=== PATIENT | male | born 1965 | race Hispanic/Latino ===

== ENCOUNTER 2018-11-02 19:02 | Inpatient (IN) | payer OTHER ==
[~2018-11-02] VITALS: Ht 160 cm; Wt 69.4 kg
[2018-11-02 19:28] LABS: EOSINOPHILS % (AUTO) 2.3 % (0.0-8.0); HEMATOCRIT 49.3 % (42-54); LYMPHOCYTES % (AUTO) 30.2 % (21.0-51.0); MEAN CORPUSCULAR HEMOGLOBIN 30.7 pg (27.0-33.0); MEAN CORPUSCULAR HGB CONC 34.7 g/dL (32.0-36.0); MEAN CORPUSCULAR VOLUME 88.3 fL (79-99); MONOCYTES % (AUTO) 5.5 % (3.0-13.0); PLATELET COUNT (AUTO) 220 K/uL (130-400); RED BLOOD CELL COUNT(AUTO) 5.58 MIL/uL (4.50-6.20); RED CELL DISTRIBUTION WIDTH 12.9 % (11.0-15.5)
[2018-11-02 19:42] LABS: CREATININE 0.8 mg/dL (0.5-1.5)
[2018-11-02 19:50] LABS: INR 0.96 (0.85-1.15); PARTIAL THROMBOPLASTIN TIME 29.2 SEC (26.3-35.5); PROTHROMBIN TIME 10.1 SEC (9.6-11.6)
[2018-11-02 19:54] LABS: ALBUMIN 3.9 g/dL (3.5-5.0); BILIRUBIN,TOTAL 0.6 mg/dL (0.2-1.0); POTASSIUM 4.5 mmol/L (3.5-5.1)
[2018-11-02 20:27] LABS: APPEARANCE,URINE Clear (CLEAR); BILIRUBIN,URINE Negative (NEGATIVE); COLOR,URINE Yellow (YELLOW); GLUCOSE, URINE (UA) 250 mg/dL (NEGATIVE); KETONES,URINE Negative (NEGATIVE); LEUKOCYTE ESTERASE ,URINE Negative (NEGATIVE); NITRATE,URINE Negative (NEGATIVE); OCCULT BLOOD,URINE Negative (NEGATIVE); PH,URINE 6.5 (5.0-8.0); PROTEIN,URINE Negative (NEGATIVE)
[2018-11-02 20:34] LABS: AMPHET/METH SCREEN,URINE NEGATIVE (NEGATIVE); BARBITURATE SCREEN, URINE NEGATIVE (NEGATIVE); BENZODIAZEPINES SCREEN,URINE NEGATIVE (NEGATIVE); CANNABINOID SCREEN,URINE NEGATIVE (NEGATIVE); COCAINE SCREEN,URINE NEGATIVE (NEGATIVE); OPIATE SCREEN,URINE NEGATIVE (NEGATIVE); PHENCYCLIDINE SCREEN,URINE NEGATIVE (NEGATIVE)
[2018-11-02] MEDS ORDERED: ASPIRIN 325 MG TABLET ONE (23:29)
[2018-11-02] MEDS ORDERED: ACETAMINOPHEN 325 MG TAB PO PRN (23:45)
[2018-11-02] MEDS ORDERED: ONDANSETRON HCL 4 MG/2 ML VIAL IV PRN (23:45)
[2018-11-03] VITALS (7 sets, daily range): BP systolic 116–133; BP diastolic 57–71
[2018-11-03 00:01] LABS: HEMOGLOBIN A1C 7.7 % (4.0-6.0)
[2018-11-03] MEDS ORDERED: PANTOPRAZOLE SODIUM 40 MG TABLET.DR PO ONE (00:33)
[2018-11-03] MEDS ORDERED: SODIUM CHLORIDE 0.9% 1000ML 1,000 ML IV ONE (00:33)
[2018-11-03] MEDS ORDERED: ENOXAPARIN SODIUM 30 MG/0.3 ML SQ ONE (00:33)
[2018-11-03 06:57] LABS: BASOPHILS % (AUTO) 0.9 % (0.0-5.0); EOSINOPHILS % (AUTO) 3.6 % (0.0-8.0); HEMATOCRIT 44.2 % (42-54); LYMPHOCYTES % (AUTO) 40.4 % (21.0-51.0); MEAN CORPUSCULAR HEMOGLOBIN 30.3 pg (27.0-33.0); MEAN CORPUSCULAR HGB CONC 34.7 g/dL (32.0-36.0); MEAN CORPUSCULAR VOLUME 87.3 fL (79-99); MONOCYTES % (AUTO) 6.1 % (3.0-13.0); NUCLEATED RED BLOOD CELLS 0.1 % (0.0-0.19); PLATELET COUNT (AUTO) 193 K/uL (130-400); RED BLOOD CELL COUNT(AUTO) 5.06 MIL/uL (4.50-6.20); RED CELL DISTRIBUTION WIDTH 13.1 % (11.0-15.5)
[2018-11-03 07:17] LABS: ALBUMIN 3.3 g/dL (3.5-5.0); BILIRUBIN,TOTAL 0.5 mg/dL (0.2-1.0); CREATININE 0.8 mg/dL (0.5-1.5); POTASSIUM 4.1 mmol/L (3.5-5.1); THYROID STIMULATING HORMONE 2.13 uIU/mL (0.36-3.74); TOTAL PROTEIN, SERUM 6.7 g/dL (6.0-8.3)
--- NOTE | 2018-11-03 07:45 | NUR ---
ASSESSMENT ENCOUNTERED PT SITTING ON SIDE OF BED, A&OX3, CALM COOPERATIVE AND DOES NOT APPEAR TO BE IN ANY DISTRESS NOR ANY NEURO DEFICITS PRESENT, PT DENIES PAIN, SOB, NAUSEA. PT DOES HAVE RT SIDED WEAKNESS TO EXTREMITIES, PT IS AMBULATORY, GAIT SLOW BUT STEADY WITH A WEAK GAIT TO THE RIGHT SIDE. PT IS ABLE TO TOLERATE FOODS FLUIDS AND MEDICATIONS WITH NO THROAT CLEARING OR COUGH. CALL LIGHT WITHIN REACH, FAMILY AT BEDSIDE.
[2018-11-03] MEDS ORDERED: IOHEXOL-350 75 ML VIAL IV ONE (08:06)
[2018-11-03] MEDS ORDERED: GADODIAMIDE 5 MMOL/10 ML VIAL 5 MMOL/10 ML ML IV ONE (08:07)
[2018-11-03] MEDS ORDERED: ASPIRIN 325MG EC TAB 325 MG TABLET.DR PO SCH (09:00)
--- NOTE | 2018-11-03 10:14 | NUR ---
BEDSIDE SWALLOW EVALUATION COMPLETE. -S/S OF ASPIRATION OBSERVED. RECOMMEND REGULAR DIET WITH THIN LIQUIDS. PATIENT INFORMATION: PATIENT IS A 52 YEAR OLD MALE REFERRED FOR A BEDSIDE SWALLOW EVALUATION SECONDARY TO POSSIBLE CVA. PATIENT ADMITTED TO HOSPITAL WITH THE FOLLOWING DIAGNOSIS: RULE OUT CVA, HYPERTENSION, AND ONSET OF TYPE 2 DIABETES. PATIENT REPORTS AN UNREMARKABLE MEDICAL HISTORY. PATIENT ALERT AND COOPERATIVE DURING EVALUATION. EVALUATION: PATIENT'S SWALLOW FUNCTION AND EFFICIENCY ARE WITHIN FUNCTIONAL LIMITS. NO SIGNS/SYMPTOMS OF ASPIRATION WERE OBSERVED DURING EVALUATION. PATIENT PRESENTS WITH POOR DENTITION WITH AND WITHOUT DENTURES. THIS AFFECTS MASTICATION PATTERNS. PATIENT PRESENTS WITH ADEQUATE ORAL STRENGTH AND CONTROL, TIMELY PHARYNGEAL RESPONSE TIME, GOOD LARYNGEAL ELEVATION AND EXCURSION, AND APPROPRIATE AIRWAY PROTECTION. PATIENT'S SPEECH AND LANGUAGE ARE COMMENSURATE WITH PRE-ADMISSION STATUS. RECOMMENDATIONS: 1. REGULAR TEXTURE DIET 2. THIN LIQUIDS G-CODES: [id number] Addendum: 11/03/[address] ABERNATHY Amended: Links added.
[2018-11-03] MEDS: SODIUM CHLORIDE 0.9% 1000ML 1,000 ML IV SCH (14:00)
[2018-11-03] MEDS: ASPIRIN 325MG EC TAB 325 MG TABLET.DR PO SCH (15:43)
[2018-11-03] MEDS: ENOXAPARIN SODIUM 30 MG/0.3 ML SQ SCH (15:43)
[2018-11-03] MEDS: INSULIN HUMULIN R 100 UNIT/ML 3ML SQ SCH (21:00)
[2018-11-03] MEDS: FAMOTIDINE/PF 20 MG/2 ML VIAL IV SCH (23:13)
[2018-11-04 03:00] VITALS: BP 127/65
[2018-11-04] MEDS: INSULIN HUMULIN R 100 UNIT/ML 3ML SQ SCH ×4 (06:47→21:59)
[2018-11-04 07:57] VITALS: BP 117/64
--- NOTE | 2018-11-04 08:00 | NUR ---
ASSESSMENT ENCOUNTERED PT A&OX3, CALM COOPERATIVE AND DOES NOT APPEAR TO BE IN ANY DISTRESS. PT DENIES PAIN, SOB, NAUSEA. PT IS AMBULATORY, GAIT SLOW BUT STEADY WITH STAND BY ASSIST. PT DOES HAVE WEAKNESS TO RT UPPER AND LOWER EXTREMITIES WITH NO FACIAL DROOP. PT IS ABLE TO TOLERATE FOODS, FLUIDS AND MEDICATION WITH NO THROAT CLEARING OR COUGH. CALL LIGHT WITHIN REACH, FAMILY AT BEDSIDE.
[2018-11-04] MEDS: FAMOTIDINE/PF 20 MG/2 ML VIAL IV SCH ×2 (08:19→21:43)
[2018-11-04] MEDS: ASPIRIN 325MG EC TAB 325 MG TABLET.DR PO SCH (08:20)
[2018-11-04] MEDS: ENOXAPARIN SODIUM 30 MG/0.3 ML SQ SCH (08:20)
[2018-11-04] MEDS: SODIUM CHLORIDE 0.9% 1000ML 1,000 ML IV SCH ×2 (10:00)
[2018-11-04 11:56] VITALS: BP 130/57
--- NOTE | 2018-11-04 13:35 | NUR ---
RD Notification for New Diabetes Mellitus Onset RD offered and provided nutrition education to patient. Patient was agreeable and accepting of information. Patient asked appropriate questions concerning dietary recommendations. Patient provided with reference materials and handout for additional revision. Patient verbalized understanding. Screen Patient with no GI distress on current Heart Healthy diet and PO intake at 100%. Patient LBM 11/04/17. Patient monitored labs: Glu 137, Alb 3.3, Triglycerides 319. RD to continue to monitor nutritional labs and PO intake. Please notify RD as nutritional concerns arise. Thank you. Addendum: 11/04/18 at [address] RD Amended: Links added.
--- NOTE | 2018-11-04 13:45 | NUR ---
CARDIOLOGY CONSULT SPOKE TO CABRERA GOFF PA-C.
[2018-11-04 16:17] VITALS: BP 138/65
[2018-11-04 17:17] LABS: INR 0.95 (0.85-1.15); PARTIAL THROMBOPLASTIN TIME 29.5 SEC (26.3-35.5)
[2018-11-04] MEDS ORDERED: HEPARIN SODIUM 5000UNIT/ML 1ML VIAL SQ PRN (18:15)
[2018-11-04 19:00] VITALS: BP 134/59
[2018-11-04] MEDS: HEPARIN 25000 UNITS/250 ML D5W 250 ML IV SCH (19:03)
[2018-11-04] MEDS: ATORVASTATIN CALCIUM 10 MG TABLET PO SCH (21:43)
--- NOTE | 2018-11-04 22:36 | NUR ---
Dr Massey Spoke to Dr Massey. Informed him of MRI findings Addendum: 11/04/18 at 2315 by CHARMAINE BAUER RN RN Informed Dr Massey of Heparin drip started on patient per Cardiology
[2018-11-04 23:00] VITALS: BP 108/57
--- NOTE | 2018-11-05 01:00 | NUR ---
PTT Patient on heparin drip. PTT 0100: 70.3. Within therapeutic range. Will not change. Next ppt at 0600. No signs of bleeding. Education provided to patient.
[2018-11-05 03:00] VITALS: BP 111/64
--- NOTE | 2018-11-05 06:01 | NUR ---
Patient alert and oriented x4. Denies pain or sob. Resting in bed comfortably. Urinal at reach. Nuero checks q4h. Face symmetrical, Tongue midline. Right all terrain vehicle racer slightly weaker than left. No limb ataxia. No drift to extremities. No gaze. No visual deficits.
[2018-11-05 06:23] LABS: BASOPHILS % (AUTO) 0.9 % (0.0-5.0); EOSINOPHILS % (AUTO) 4.2 % (0.0-8.0); HEMATOCRIT 45.7 % (42-54); LYMPHOCYTES % (AUTO) 34.9 % (21.0-51.0); MEAN CORPUSCULAR HGB CONC 34.1 g/dL (32.0-36.0); MONOCYTES % (AUTO) 6.9 % (3.0-13.0); NEUTROPHILS % (AUTO) 53.1 % (40.0-77.0); NUCLEATED RED BLOOD CELLS 0.1 % (0.0-0.19); PLATELET COUNT (AUTO) 172 K/uL (130-400); WHITE BLOOD COUNT (AUTO) 8.7 K/uL (4.8-10.8)
[2018-11-05] MEDS: INSULIN HUMULIN R 100 UNIT/ML 3ML SQ SCH ×4 (07:30→21:00)
[2018-11-05 07:42] VITALS: BP 126/50
[2018-11-05] MEDS: METFORMIN HCL 500 MG TAB.SR.24H PO SCH (08:18)
[2018-11-05] MEDS: FAMOTIDINE/PF 20 MG/2 ML VIAL IV SCH ×2 (09:09→22:41)
[2018-11-05] MEDS: ASPIRIN 325MG EC TAB 325 MG TABLET.DR PO SCH (09:09)
[2018-11-05 11:49] VITALS: BP 101/52
[2018-11-05] MEDS: SODIUM CHLORIDE 0.9% 1000ML 1,000 ML IV SCH (15:58)
[2018-11-05] MEDS: HEPARIN 25000 UNITS/250 ML D5W 250 ML IV SCH (16:14)
[2018-11-05 16:20] VITALS: BP 133/60
[2018-11-05 19:47] VITALS: BP 115/57
[2018-11-05] MEDS: ATORVASTATIN CALCIUM 10 MG TABLET PO SCH (22:40)
[2018-11-05 23:49] VITALS: BP 126/69
[2018-11-06] MEDS: SODIUM CHLORIDE 0.9% 1000ML 1,000 ML IV SCH ×2 (02:00→22:00)
[2018-11-06 03:56] VITALS: BP 124/66
[2018-11-06 04:16] LABS: HEMATOCRIT 44.9 % (42-54); MEAN CORPUSCULAR HEMOGLOBIN 29.9 pg (27.0-33.0); MEAN CORPUSCULAR HGB CONC 33.9 g/dL (32.0-36.0); MEAN CORPUSCULAR VOLUME 88.3 fL (79-99); NUCLEATED RED BLOOD CELLS 0.2 % (0.0-0.19); PLATELET COUNT (AUTO) 177 K/uL (130-400); RED BLOOD CELL COUNT(AUTO) 5.09 MIL/uL (4.50-6.20); RED CELL DISTRIBUTION WIDTH 12.9 % (11.0-15.5); WHITE BLOOD COUNT (AUTO) 8.9 K/uL (4.8-10.8)
[2018-11-06 04:33] LABS: INR 0.97 (0.85-1.15); PARTIAL THROMBOPLASTIN TIME 63.4 SEC (26.3-35.5); PROTHROMBIN TIME 10.2 SEC (9.6-11.6)
[2018-11-06 04:35] LABS: CREATININE 0.8 mg/dL (0.5-1.5); MAGNESIUM 1.8 mg/dL (1.80-2.40); PHOSPHORUS 4.3 mg/dL (2.5-4.9); POTASSIUM 3.6 mmol/L (3.5-5.1)
[2018-11-06] MEDS: INSULIN HUMULIN R 100 UNIT/ML 3ML SQ SCH ×4 (06:36→20:55)
[2018-11-06 07:00] VITALS: BP 120/69
[2018-11-06] MEDS: METFORMIN HCL 500 MG TAB.SR.24H PO SCH (08:00)
--- NOTE | 2018-11-06 09:35 | NUR ---
TO CT SCAN VIA W/C.
[2018-11-06] MEDS: FAMOTIDINE/PF 20 MG/2 ML VIAL IV SCH ×2 (10:48→20:54)
[2018-11-06] MEDS: ASPIRIN 81 MG EC TAB PO SCH (10:49)
[2018-11-06 11:00] VITALS: BP 137/71
--- NOTE | 2018-11-06 15:30 | NUR ---
DR. RISO CALLED TO CHECK ON THE RESULTS OF CT SCAN ON PT AND ORDERS WERE NOTED.
[2018-11-06 16:00] VITALS: BP 127/67
--- NOTE | 2018-11-06 16:55 | NUR ---
ADVISED DR. PASTOR OF THE ORDERS DR. RIOS HAD GIVEN FOR PRIMARY PHYSICIAN. ORDERS NOTED.
[2018-11-06 19:38] VITALS: BP 118/50
[2018-11-06] MEDS: ATORVASTATIN CALCIUM 10 MG TABLET PO SCH (20:54)
[2018-11-06] MEDS: APIXABAN 2.5 MG TABLET PO SCH (20:54)
[2018-11-06 23:52] VITALS: BP 121/47
[2018-11-07 03:53] VITALS: BP 131/58
[2018-11-07 04:07] LABS: HEMATOCRIT 45.2 % (42-54); MEAN CORPUSCULAR HEMOGLOBIN 29.8 pg (27.0-33.0); MEAN CORPUSCULAR HGB CONC 33.8 g/dL (32.0-36.0); MEAN CORPUSCULAR VOLUME 88.3 fL (79-99); NUCLEATED RED BLOOD CELLS 0.1 % (0.0-0.19); PLATELET COUNT (AUTO) 185 K/uL (130-400); RED BLOOD CELL COUNT(AUTO) 5.12 MIL/uL (4.50-6.20)
[2018-11-07 04:19] LABS: BAND NEUTROPHILS % (MANUAL) 7 % (0-2); EOSINOPHILS % (MANUAL) 1 % (1-6); LYMPHOCYTES % (MANUAL) 21 % (22-44); MAN.DIFF COMMENT-IMPRESSION MANUAL DIFFERENTIAL; MONOCYTES % (MANUAL) 6 % (2-9); PLATELET MORPHOLOGY COMMENT ADEQUATE; SEGMENTED NEUTROPHILS % 65 % (40-70)
[2018-11-07 04:23] LABS: CREATININE 0.9 mg/dL (0.5-1.5); MAGNESIUM 1.8 mg/dL (1.80-2.40); POTASSIUM 3.8 mmol/L (3.5-5.1)
[2018-11-07] MEDS: INSULIN HUMULIN R 100 UNIT/ML 3ML SQ SCH ×4 (06:50→20:38)
[2018-11-07 07:00] VITALS: BP 138/67
[2018-11-07] MEDS: SODIUM CHLORIDE 0.9% 1000ML 1,000 ML IV SCH ×3 (08:00→20:44)
[2018-11-07] MEDS: METFORMIN HCL 500 MG TAB.SR.24H PO SCH (08:22)
[2018-11-07] MEDS: ASPIRIN 81 MG EC TAB PO SCH (09:00)
[2018-11-07] MEDS: ASPIRIN 81MG TAB.CHEW PO SCH (09:48)
[2018-11-07] MEDS: APIXABAN 2.5 MG TABLET PO SCH ×2 (09:48→20:41)
[2018-11-07] MEDS: FAMOTIDINE/PF 20 MG/2 ML VIAL IV SCH ×2 (09:48→20:41)
[2018-11-07 11:00] VITALS: BP 116/54
[2018-11-07 16:00] VITALS: BP 100/54
[2018-11-07 20:14] VITALS: BP 127/62
[2018-11-07] MEDS: ATORVASTATIN CALCIUM 10 MG TABLET PO SCH (20:41)
[2018-11-07 23:32] VITALS: BP 118/58
[2018-11-08 04:01] LABS: HEMATOCRIT 46.3 % (42-54); MEAN CORPUSCULAR HGB CONC 33.9 g/dL (32.0-36.0); MEAN CORPUSCULAR VOLUME 88.3 fL (79-99); PLATELET COUNT (AUTO) 183 K/uL (130-400); RED BLOOD CELL COUNT(AUTO) 5.24 MIL/uL (4.50-6.20); RED CELL DISTRIBUTION WIDTH 13.2 % (11.0-15.5); WHITE BLOOD COUNT (AUTO) 9.3 K/uL (4.8-10.8)
[2018-11-08 04:06] VITALS: BP 127/64
[2018-11-08 04:14] LABS: CREATININE 0.9 mg/dL (0.5-1.5); POTASSIUM 4.1 mmol/L (3.5-5.1)
[2018-11-08 04:17] LABS: EOSINOPHILS % (MANUAL) 3 % (1-6); LYMPHOCYTES % (MANUAL) 21 % (22-44); MAN.DIFF COMMENT-IMPRESSION MANUAL DIFFERENTIAL; MONOCYTES % (MANUAL) 10 % (2-9); PLATELET MORPHOLOGY COMMENT ADEQUATE; SEGMENTED NEUTROPHILS % 66 % (40-70)
[2018-11-08] MEDS: INSULIN HUMULIN R 100 UNIT/ML 3ML SQ SCH ×2 (05:33→11:49)
[2018-11-08 08:12] VITALS: BP 128/69
--- NOTE | 2018-11-08 08:13 | NUR ---
RD Notification for new onset diabetes received Patient seen by RD and education previously provided. RD to continue to follow up. Please notify RD as nutritional concerns arise. Thank you.
--- NOTE | 2018-11-08 08:30 | NUR ---
AM ASSESSMENT PT LAYING IN BED, HOB ELEVATED 30 DEGREES, WATCHING TV. A/O X 3. NO SOB. NO DISTRESS NOTED. DENIES CHEST PAIN OR DISCOMFORT. DENIES PALPITATIONS. TELE: SR 80s. DENIES N/V AND/OR DIARRHEA. INSTRUCTED TO CALL FOR ASSISTANCE. CALL [facility] W/IN REACH.
[2018-11-08] MEDS: ASPIRIN 81MG TAB.CHEW PO SCH (08:32)
[2018-11-08] MEDS: APIXABAN 2.5 MG TABLET PO SCH (08:32)
[2018-11-08] MEDS: FAMOTIDINE/PF 20 MG/2 ML VIAL IV SCH (08:32)
[2018-11-08] MEDS: METFORMIN HCL 500 MG TAB.SR.24H PO SCH (08:32)
[2018-11-08] MEDS: ASPIRIN 81 MG EC TAB PO SCH (09:00)
[2018-11-08] MEDS ORDERED: ATOR10 PO (11:22)
[2018-11-08] MEDS ORDERED: APIX2.5T PO (11:22)
[2018-11-08] MEDS ORDERED: ASPI-1005 PO (11:22)
[2018-11-08] MEDS ORDERED: METF500T3 PO (11:22)
[2018-11-08 11:45] VITALS: BP 121/64
[2018-11-08 11:47] VITALS: BP 131/61
--- NOTE | 2018-11-08 12:10 | NUR ---
DC Plan Provided patient w/ free 30 day coupon for [employer]. Informed patient he will need to present card along w/ script for medication. Also provided application for [employer] assistance. Informed patient he will need to take form to family doctor to have PCP fill, sign, and fax. Patient states will find doctor when discharged from hospital. Patient denied any further questions. CD Addendum: 11/08/18 at 1212 by VASYL MCKEON CM Amended: Links added.
[2018-11-08] MEDS: SODIUM CHLORIDE 0.9% 1000ML 1,000 ML IV SCH (14:00)
--- NOTE | 2018-11-08 14:00 | NUR ---
DISCHARGE VERBAL & WRITTEN DISCHARGE INSTRUCTIONS REVIEWED & GIVEN TO PT. QUESTIONS ENCOURAGED & CLARIFIED. PROPER CARE, MG & ACTIVITY AFTER STROKE REVIEWED. REINFORCED IMPORTANCE OF STROKE REHABILITATION. NEW PRESCRIBED MEDICATION REVIEWED. REINFORCED IMPORTANCE OF TAKING MEDICATIONS INDICATED & NOT MISSING ANY DOSES. STATES UNDERSTANDING. PRESCRIPTION GIVEN TO PT; SIGNED COPY PLACED IN CHART. F/U APPT INFORMATION GIVEN & HIGHLIGHTED ON DC PAPERWORK. PT ENCOURAGED TO SEEK PRIMARY CARE PHYSICIAN TO F/U WITH IN REGULAR BASIS. VOUCHER FOR ELIQUIS GIVEN TO PT BY NEHEMIAS. IV X 2 DISCONTINUED. TELE JOE REMOVED. PT TO GATHER PERSONAL BELONGINGS. WILL NOTIFY STAFF WHEN FAMILY ARRIVES TO TAKE PT HOME.
--- NOTE | 2018-11-08 14:20 | NUR ---
DISCHARGE FAMILY HERE TO TAKE PT HOME. PT TAKEN TO PRIVATE VEHICLE VIA WC BY VALARIE RAYMOND PCP, ACCOMPANIED BY FAMILY. NO DISTRESS NOTED.
== END 2018-11-08 14:20 | disposition home or self-care (01) | DRG 65 ==
LOC: EDH 19:02 → EDHIP 23:42 → 2AH 11-03 01:41
PROVIDERS: ADMIT Internal Medicine; ATTEND Internal Medicine
DX: I63.49 Cerebral infarction due to embolism of other cerebral artery (principal); Q21.1 Atrial septal defect; G81.91 Hemiplegia, unspecified affecting right dominant side; I10 Essential (primary) hypertension; F17.210 Nicotine dependence, cigarettes, uncomplicated; I65.23 Occlusion and stenosis of bilateral carotid arteries; R47.1 Dysarthria and anarthria; E78.2 Mixed hyperlipidemia; E11.69 Type 2 diabetes mellitus with other specified complication; Z79.01 Long term (current) use of anticoagulants; Z91.19 Patient's noncompliance with other medical treatment and regimen; Z23 Encounter for immunization; Z83.3 Family history of diabetes mellitus
CPT/HCPCS: 36415; 70450; 70496; 70498; 70553; 71045; 73030; 80048; 80053; 80061; 80305; 81003; 82550; 82948; 83036; 83735; 83874; 84100; 84443; 84484; 85025; 85027; 85610; 85730; 92610; 93005; 93306; 97039; A9579; G0378; J1644; J1650; J1815; J3490; J7030; Q2035; Q9967